=== PATIENT | male | born 1985 | race Two or more races ===

== ENCOUNTER 2020-04-17 12:01 | Outpatient (REF) | payer BC, SELFPAY | END 2020-04-17 12:02 | disposition home or self-care (01) | LOC: HO.LAB 12:01 | PROVIDERS: Visit Provider Internal Medicine | DX: Z20.828 Contact with and (suspected) exposure to other viral communicable diseases (principal) | CPT/HCPCS: 36415; 87635 ==

== ENCOUNTER 2020-08-07 12:44 | Outpatient (REF) | payer BC, SELFPAY | END 2020-08-07 12:45 | disposition home or self-care (01) | LOC: HO.LAB 12:44 | PROVIDERS: Visit Provider Internal Medicine | DX: Z20.822 Contact with and (suspected) exposure to COVID-19 (principal) | CPT/HCPCS: 36415; C9803; U0003 ==

== ENCOUNTER 2020-10-12 09:01 | Outpatient (REF) | payer BC, SELFPAY | END 2020-10-12 09:02 | disposition home or self-care (01) | LOC: HO.LAB 09:01 | PROVIDERS: Visit Provider Internal Medicine | DX: Z20.822 Contact with and (suspected) exposure to COVID-19 (principal) | CPT/HCPCS: 36415; C9803; U0003; U0005 ==

== ENCOUNTER 2020-11-02 11:01 | Outpatient (REF) | payer BC, SELFPAY ==
[2020-11-02 11:32] LABS: COVID-19 Test Negative (Negative); IDNOW Serial# 55D5AD1C
== END 2020-11-02 11:02 | disposition home or self-care (01) ==
LOC: HO.LAB 11:01
PROVIDERS: Visit Provider Internal Medicine
DX: Z20.822 Contact with and (suspected) exposure to COVID-19 (principal)
CPT/HCPCS: 36415; 87635; C9803

== ENCOUNTER 2021-01-21 15:21 | Outpatient (REF) | payer BC, SELFPAY | END 2021-01-21 15:22 | disposition home or self-care (01) | LOC: HO.LAB 15:21 | PROVIDERS: Visit Provider Internal Medicine | DX: Z20.822 Contact with and (suspected) exposure to COVID-19 (principal) | CPT/HCPCS: C9803; U0003; U0005 ==

== ENCOUNTER 2021-07-05 12:58 | Outpatient (REF) | payer BC, SELFPAY ==
[2021-07-05 14:07] LABS: COVID-19 Test Positive (Negative)
== END 2021-07-05 12:59 | disposition home or self-care (01) ==
LOC: HO.LAB 12:58
PROVIDERS: Visit Provider Internal Medicine
DX: Z20.822 Contact with and (suspected) exposure to COVID-19 (principal)
CPT/HCPCS: 36415; 87635; C9803

== ENCOUNTER 2023-09-12 09:08 | Outpatient (AMB) | payer BC, SELFPAY ==
--- NOTE | 2023-09-12 09:15 | AM.OFFWIN_ITS ---
Intake Vital Signs 09/12/23 09:16 Height 5 ft 6 in Weight 194 lb BMI 31.3 BP 140/78 H Blood Pressure Location Lt brachial Pulse 82 Pulse Source Pulse Oximeter Temp 98.5 F Temp Source Oral Pulse Oximetry (%) 97 Oxygen Delivery Method Room Air Intake Visit Reasons: Hand issue Intake Note: Patient is here with complaint of being sick last , and has an unsusal scent coming from both hands since he's been sick. He tested negative for Flu, Covid, and RSV. Patient Tobacco Use Status: Never used Tobacco Allergies No Known Allergies Allergy (Verified 09/12/23 10:37) Medication List - Last Reconciled 09/12/23 by GEORGINA Fuentes No Known Home Meds Do you need a note to return to daycare/school/sports/work: Yes HPI HPI Comments History of Present Illness Details Here today with concerns over an odd smell coming from bilat hands. Reports that he was sick with a URI. While these symptoms have improved he noticed a smell coming from his hands. Reports that he did go to the sauna and apply a new hand cream that was on sent it prior to the onset of his symptoms. To treat the smell which she can not really describe he did try some hand scrubs as well as applying additional lotions. He does not feel that the smell is coming from any other part of his body. Reports that the skin to his hands is oven drier tender than usual. Does tell me that he was treated at the urgent care for his URI symptoms previously. [facility] Medical History (Updated 07/14/21 @ 14:20 by Tung Valencia) Asthma Social History Housing: House Patient Tobacco Use Status: Never used Tobacco e-Cigarette/Vaping Use: Never Used Second Hand Smoke Exposure: Yes service: No Current occupational status: employed Current occupation: [employer] Current occupational exposures/hazards: Yes Review of Systems Const All systems reviewed & are unremarkable except as noted in HPI and below Physical Exam Vital Signs: Last Vital Signs Temp 98.5 F 09/12/23 09:16 Pulse 82 09/12/23 09:16 BP 140/78 H 09/12/23 09:16 Pulse Ox 97 09/12/23 09:16 Oxygen Delivery Method Room Air 09/12/23 09:16 BMI result Body Mass Index 31.3 Const Other: Awake alert oriented Skin to bilat hands palmar and dorsal surface is dry cracked And fungal appearing with out signs or symptoms of infection Assessment & Plan Assessment & Plan (1) Fungal dermatitis: Code(s): B36.9 - Superficial mycosis, unspecified Plan: Advised patient to mix the nystatin and betamethasone together and apply to hand s twice per day. Encouraged him to follow up with the office for a repeat visit to ensure that this is getting better in 1-2 weeks. Plan This note is constructed using voice recognition software. While every effort has been made to ensure accuracy in record retrieval specialist, still errors may have been included Sometimes, these errors may affect the content or meaning of the given sentence . Total time spent caring for the patient today was 30 minutes. This includes time spent before the visit reviewing the chart, time spent during the visit, and berta e spent after the visit on documentation Medications: New nystatin 1 appl topical BID 30 grams 1RF betamethasone dipropionate 0.05% 1 appl topical BID PRN 45 grams 1RF skin irritation Patient Instructions: wear gloves or cover hands at bedtime use a&d oint to moisturize during the day no other creams or treatments RTO in 2 weeks if not better. Coding Level of Care Code Est Pt Level 4 (23199) Diagnoses Fungal dermatitis B36.9
[2023-09-12 09:16] VITALS: BP 140/78; PULSE 82; TEMP 36.9; O2SAT 97; BMI 31.3
== END 2023-09-12 13:05 | disposition home or self-care (01) ==
PROVIDERS: PCP Family Medicine; Visit Provider Nurse Practitioner Family
DX: B36.9 Superficial mycosis, unspecified (principal)
CPT/HCPCS: 99214

== ENCOUNTER 2023-10-26 11:06 | Outpatient (AMB) | payer BC, SELFPAY ==
--- NOTE | 2023-10-26 11:09 | MHC.OFFWIV ---
Intake Vital Signs 10/26/23 11:10 Height 5 ft 6 in Weight 196 lb 4 oz BMI 31.7 BP 120/86 Blood Pressure Location Lt brachial Position Sitting Pulse 80 Pulse Source Pulse Oximeter Temp 98.4 F Temp Source Oral Pulse Oximetry (%) 98 Oxygen Delivery Method Room Air Intake Visit Reasons: EP migraines-scent coming from pores Intake Note: Pt presents to the office today for c/o migraines when he wakes up in the morning which started about a month ago. Pt states he also has a scent that comes from his pores. He states he was given a cream that helped for a little bit but now states it is still there. Patient Tobacco Use Status: Never used Tobacco Allergies No Known Allergies Allergy (Verified 10/26/23 11:11) HPI EP migraines-scent coming from pores HPI Details This is a 38 year old male patient who presents today with two complaints. He states he has an ongoing odor to his skin, particularly on his arms and hands. He cannot identify the distinct odor, but states it is unpleasant. When he showers this resolves for a short time. He was seen for this issue about two months ago and he was prescribed nystatin and betamethasone topical combination to apply to these areas. He states this helps for a short time, about 15 minutes, and then the smell recurs. He reports that other people cannot typically smell this odor, however a couple of times his has noticed the smell on his bedsheets in the morning. Patient also reports frequent headaches for the last month. He states he wakes up with a headache every morning, and this resolves within about an hour of being awake. He states within that hour he usually eats and drinks something. He does not take any medication for this. He reports headaches are always in the frontal aspect of his head, and feel like throbbing/pressure. He also has associated photophobia with these. He does not have any other associated symptoms. [facility] Medical History (Updated 10/26/23 @ 13:04 by PAPITO Mcnair) Fungal dermatitis Daily headache Asthma Social History Housing: House Patient Tobacco Use Status: Never used Tobacco e-Cigarette/Vaping Use: Never Used Second Hand Smoke Exposure: Yes service: No Current occupational status: employed Current occupation: [employer] Current occupational exposures/hazards: Yes Review of Systems Const All systems reviewed & are unremarkable except as noted in HPI and below Physical Exam Vital Signs: Last Vital Signs Temp 98.4 F 10/26/23 11:10 Pulse 80 10/26/23 11:10 BP 120/86 10/26/23 11:10 Pulse Ox 98 10/26/23 11:10 Oxygen Delivery Method Room Air 10/26/23 11:10 BMI result Body Mass Index 31.7 Const General: cooperative, healthy appearing and no acute distress Nutritional Appearance: average body habitus HEENT Head: Yes normal to inspection Ears: hearing grossly normal bilaterally General nose exam: Normal external nose present Eyes Pupils: Equal, round and reactive pupils present Direct Ophthalmoscopy: normal light reflex Neck Neck: Yes no lymphadenopathy Resp Effort & Inspection: normal respiratory effort Skin General skin exam: no rashes or lesions noted, elasticity normal and turgor normal Lesions: no lesions Rashes: no rashes Hair: normal Nails: normal Neuro General: no focal motor deficits Cranial nerves: Yes Equal, round and reactive pupils present, Yes Normal accommodation reflex present and Yes Other cranial nerve findings present Cognition (Neuro): normal cognition Extrem General: Yes no clubbing, cyanosis or edema Psych Appearance: grossly normal Mental Status: mental status grossly normal Speech and movement: Normal speech and movement present Results AMB Random Glucose (hemocue) AMB Random Glucose (hemocue) 91 mg/dL Last Edit by Isabel Nevarez MA on 10/26/23 11:35 Results Reviewed Results Reviewed: Laboratory Last Values Random Glu (Clinic) 91 mg/dL 10/26/23 11:34 Assessment & Plan Assessment & Plan (1) Daily headache: Code(s): R51.9 - Headache, unspecified Plan: Patient admittedly is not drinking much water. It is possible patient's morning headaches are related to dehydration, since when he starts to eat/drink, they resolve. Neuros are wnl. I checked fasting POC on patient today which was 91. We discussed increased hydration and he is going to see if this helps with the headaches at all. I have prescribed him a short course of Sumatriptan for him to try at the onset of symptoms. We discussed use and possible s/e of medication. He has a follow up with his PCP Dr. Toby in a couple of months and will discuss further if these are persistent. He can certainly return to the clinic as needed for any further concerns in the meantime. (2) Fungal dermatitis: Code(s): B36.9 - Superficial mycosis, unspecified Plan: I am unsure what this odor could represent. I did not identify any skin odor on exam today, however patient reported he had just showered. He has tried nystatin/betamethasone cream previously for a possible fungal derm, however he states this helps only briefly. His skin assessment is normal on exam. It is possible there is something in his diet causing this perceived malodor, however he could not identify anything in particular. We discussed referral to derm for an opinion there, which he would like. I will place referral to [facility] derm and he will also f/u with PCP as scheduled. All questions were answered and patient agrees to plan. Orders: Referrals Dermatology Referral B36.9 - Superficial mycosis, unspecified Medications: New sumatriptan succinate orally 2 times a day PRN; take one tab at the onset of the headache. It it persists, take a second tab at least 2 hours later. 20 tabs 0RF migraine headache R51.9 - Headache, unspecified Coding Level of Care Code Est Pt Level 4 (99851) Diagnoses Daily headache R51.9 Fungal dermatitis B36.9
[2023-10-26 11:10] VITALS: BP 120/86; PULSE 80; TEMP 36.9; O2SAT 98; BMI 31.7
== END 2023-10-26 12:41 | disposition home or self-care (01) ==
PROVIDERS: PCP Family Medicine; Visit Provider Nurse Practitioner Family
DX: R51.9 Headache, unspecified (principal); B36.9 Superficial mycosis, unspecified
CPT/HCPCS: 99214

== ENCOUNTER 2023-10-27 15:22 | Outpatient (AMB) | payer BC, SELFPAY ==
[2023-10-27 15:23] VITALS: BP 132/80; PULSE 82; RESP 13; TEMP 36.8; O2SAT 98; BMI 32.1
--- NOTE | 2023-10-27 15:23 | MHC.PC.OV ---
Vital Signs 10/27/23 15:23 Height 5 ft 6 in Weight 199 lb BMI 32.1 BP 132/80 Blood Pressure Location Rt brachial Position Sitting Respiration 13 Pulse 82 Pulse Source Pulse Oximeter Temp 98.3 F Temp Source Temporal Artery Scan Pulse Oximetry (%) 98 Oxygen Delivery Method Room Air Intake Visit Reasons: lightheadedness Internist Medical Doctor Md Required: No Accompanied by: Self / Same As Patient Allergies No Known Allergies Allergy (Verified 10/27/23 15:35) Medication List - Last Reconciled 10/27/23 by Declan Buenrostro CNP betamethasone dipropionate 0.05% 1 appl topical BID PRN nystatin 1 appl topical BID sumatriptan succinate orally 2 times a day PRN; take one tab at the onset of the headache. It it persists, take a second tab at least 2 hours later. Tobacco use date assessed: 10/27/23 Dental Screening Dental Screen Date: 10/27/23 Did you have a dental visit in the last 12 months?: Yes Did you have a dental problem in the last 6 months where you did not have access to dental care?: No Was dental information given to patient?: Patient has dentist HPI HPI Comments History of Present Illness Details 38-year-old male presents with complaints of complaints of persistent frontal headaches for over a week. He reports dizziness and blurry vision for 5-10 minutes this morning, which made him decided to no go to work today. He was evaluated at the walk-in clinic for similar clinic yesterday and was prescribed sumatriptan which he started taking this morning with significant headache relief. He admits to not drinking adequate fluids. He admits to mild photophobia. Denies photophobia. No nausea or vomiting. Current headache is mild. [facility] Medical History Fungal dermatitis Daily headache Asthma Surgical History (Updated 10/27/23 @ 15:30 by KAYY Bazan) No pertinent past surgical history Social History Housing: House Patient Tobacco Use Status: Never used Tobacco e-Cigarette/Vaping Use: Never Used Second Hand Smoke Exposure: Yes service: No Current occupational status: employed Current occupation: [employer] Current occupational exposures/hazards: Yes Cognitive needs: No Hearing needs: No Vision needs: No Questionnaire Thrive Questionnaire Date Thrive assessed: 07/14/21 MARTINA-7 AMB Questionnaire MARTINA-7 Date MARTINA - 7 assessed: 07/14/21 Source: Developed by Drs. Edvin Spring, Susan Will, Rai Jean and colleagues, with an educational fawn from [email or web address]. Review of Systems Const Details: Const Denies chills, Denies fatigue, Denies fever(s), Reports headache(s) and Denies weakness ENT Reports as per HPI Card Denies chest pain, Denies lightheadedness, Denies dyspnea and Denies other (Palpitations) Resp Denies cough, Denies dyspnea, Denies wheezing and Denies other ( shortness of breath) GI Denies abdominal pain, Denies melena, Denies hematochezia, Denies change in bowel habits, Denies dyspepsia and Denies nausea Denies hematuria and Denies dysuria Musc Denies abnormal gait, Denies myalgias, Denies arthralgias, Denies numbness and Denies tingling Skin/Breast Denies rash, Denies unusual bruising and Denies wounds Neuro Denies abnormal gait, Denies dizziness, Denies headache(s), Denies memory loss, Denies numbness, Denies Sensory deficit (Neuro), Denies tingling and Denies weakness Psych Denies anxiety, Denies depression, Denies memory loss Endo Denies cold intolerance, Denies fatigue, Denies heat intolerance, Denies polydipsia and Denies polyuria Aller/Immun Denies wheezing Physical exam (Primary Care) Vital Signs: Last Vital Signs Temp 98.3 F 10/27/23 15:23 Pulse 82 10/27/23 15:23 Resp 13 10/27/23 15:23 BP 132/80 10/27/23 15:23 Pulse Ox 98 10/27/23 15:23 Oxygen Delivery Method Room Air 10/27/23 15:23 BMI result Body Mass Index 32.1 Tobacco/Smoking Status: Tobacco use Status Tobacco use date assessed 10/27/23 10/27/23 15:31 Patient Tobacco Use Status Never used Tobacco 10/27/23 15:31 e-Cigarette/Vaping Use Never Used 10/27/23 15:31 Thrive Assessment: Date of Thrive Assessment Date Thrive assessed 07/14/21 10/27/23 15:31 Const Other: General: no acute distress and well developed Nutritional Appearance: well nourished Orientation/consciousness: patient oriented x3 [facility] Head is normocephalic Bilateral ear canal and TM are normal Nasal turbinates and oropharynx are pink and moist Sinuses are nontender with palpation No auricular or cervical lymphadenopathy Eyes General: appearance normal, both eyes and all related structures Pupils: Equal, round and reactive pupils present EOM: EOMs intact bilaterally Resp Effort & Inspection: normal respiratory effort Auscultation: clear to auscultation bilaterally Cardio Rate: regular rate Rhythm: regular rhythm Heart sounds: S1 normal heart sound present, S2 normal heart sound present, no gallops, no murmurs and no rubs GI Palpation (GI): No Abdominal aortic bruit present, Soft to palpation, nontender, No hepatosplenomegaly present and No Rebound tenderness present Auscultation: normal bowel sounds General: Yes no CVA tenderness Back/Spine/Pelvis Back: no CVA tenderness Cervical Spine: cervical ROM normal and No Cervical spine tenderness Thoracic/Lumbar Spine: thoraco-lumbar ROM normal, No pain with thoraco-lumbar ROM, No thoracic spinal tenderness and No lumbar spinal tenderness Extrem General: Yes normal to inspection, No edema and No calf tenderness Skin General: warm and dry. Normal skin color. Normal skin turgor Neuro General: patient oriented x3, gait normal and no focal neuro deficit Cranial nerves: Yes Equal, round and reactive pupils present Cognition (Neuro): normal cognition Gait exam (Neuro): Normal gait present Sensory Exam: No Sensory deficit (Neuro) Psych Appearance: grossly normal Affect: normal affect Attitude: cooperative Thought process: Normal thought process present Assessment and Plan Assessment & Plan (1) Daily headache: Code(s): R51.9 - Headache, unspecified Plan: Persistent frontal headache for over a week. Responding well to sumatriptan. Current headache is mild Continue to take sumatriptan as prescribed Adequate hydration encouraged Labs ordered. Advised to fast for 10-12 hours, may drink water only, and get blood work done. Will review results and make changes as needed Work note given Follow-up with PCP as planned or return sooner with worsening or new symptoms Verbalized understanding and agreed with treatment plan Orders: Orders Complete Blood Count Auto Diff Today R51.9 - Headache, unspecified Comprehensive [place]. Panel Fast Today R51.9 - Headache, unspecified TSH reflex Free T4 Today R51.9 - Headache, unspecified Lipid Panel Today R51.9 - Headache, unspecified Coding Level of Care Code Est Pt Level 3 (13967) Diagnoses Daily headache R51.9
== END 2023-10-27 15:49 | disposition home or self-care (01) ==
LOC: HO.HMGFM 15:22
PROVIDERS: PCP Family Medicine
DX: R51.9 Headache, unspecified (principal)
CPT/HCPCS: 99213

== ENCOUNTER 2024-04-10 12:15 | Outpatient (REF) | payer BC, SELFPAY ==
[2024-04-10 15:02] LABS: MANUAL DIFF FLAG NO
[2024-04-10 15:07] LABS: Eosinophils Percent Auto 0.5 % (0-4); Hematocrit 38.3 % (42.0-52.0); Hemoglobin 12.9 g/dl (14.0-18.0); Imm Gran Abs Auto 0.01 X10*3/uL (0.00-0.03); Imm Gran Pct Auto 0.3 % (0.0-0.4); Lymphocytes Absolute Auto 1.6 X10*3/uL (1.2-4.9); Lymphocytes Percent Auto 40.8 % (20-40); Mean Corpuscular HGB Conc 33.7 g/dl (31.0-36.0); Mean Corpuscular Hemoglobin 29.3 pg (27.0-33.0); Mean Corpuscular Volume 86.8 fL (80.0-98.0); Mean Platelet Volume 9.2 fL (9.4-12.4); Monocytes Absolute Auto 0.3 X10*3/uL (0.1-1.2); Monocytes Percent Auto 7.2 % (2-11); Neutrophils Percent Auto 50.2 % (45-73); Platelet Count 257 X10*3/uL (160-400); Red Blood Count 4.41 X10*6/uL (4.60-5.80); Red Cell Distribution Width 12.7 % (11.0-16.0); White Blood Count 3.9 X10*3/uL (4.8-10.8)
[2024-04-10 16:30] LABS: Alanine Aminotransferase 24 U/L (0-40); Albumin Level 4.6 g/dL (3.5-5.0); Alkaline Phosphatase 81 U/L (39-117); Anion Gap 14 (12-20); Aspartate Amino Transferase 25 U/L (5-37); Bilirubin Total 0.7 mg/dL (0.0-1.0); Blood Urea Nitrogen 15 mg/dL (9-16); Calcium 9.7 mg/dL (8.4-10.2); Carbon Dioxide 28 mmol/L (22-29); Chloride 101 mmol/L (96-108); Cholesterol 182 mg/dL (<200); Estimated Glomerular Filt Rate > 60; Glucose Fasting 83 mg/dL (60-99); HDL Cholesterol 43 mg/dL (>40); LDL Cholesterol Calculated 117 mg/dL (<100); Potassium 4.2 mmol/L (3.3-5.1); Sodium 139 mmol/L (135-145); Total Protein 8.4 g/dL (6.5-8.0); Triglycerides 114 mg/dL (<150)
[2024-04-10 20:07] LABS: TSH reflex Free T4 0.87 uIU/mL (0.32-4.0)
== END 2024-04-10 12:16 | disposition home or self-care (01) ==
LOC: HO.WFDLDS 12:15
PROVIDERS: Visit Provider Nurse Practitioner Family
DX: R51.9 Headache, unspecified (principal)
CPT/HCPCS: 36415; 80053; 80061; 84443; 85025

== ENCOUNTER 2024-05-29 16:12 | Outpatient (AMB) | payer BC, SELFPAY ==
--- NOTE | 2024-05-29 16:15 | A.OFFPC_ITS ---
Vital Signs 05/29/24 16:21 Height 5 ft 6 in Weight 190 lb 4 oz BMI 30.7 BP 126/76 Blood Pressure Location Rt brachial Position Sitting Respiration 14 Pulse 83 Pulse Source Pulse Oximeter Temp 98.0 F Temp Source Oral Pulse Oximetry (%) 98 Oxygen Delivery Method Room Air Intake Visit Reasons: Blood Work f/u Intake Note: f/u labs from 04/10/24 Allergies No Known Allergies Allergy (Verified 05/29/24 16:20) Tobacco use date assessed: 10/27/23 Dental Screening Dental Screen Date: 10/27/23 HPI Blood Work f/u HPI Details 38 y/o male presents to f/u labs. Labs drawn 04/10/24. Reviewed labs with pt. Mild anemia. Denies any hx of anemia. Triglycerides 114. TC 182. LDL 117. HDL 43. TSH 0.87. Rest of his labs are fine. Total protein mildly high at 8.4 g/dL. Had seen MI in October for persistent headaches. He had been given sumitriptan for migraine headaches. He notes he needs to work on a diet and needs to get back to the gym. [facility] Medical History (Updated 05/29/24 @ 16:42 by Tung Valencia) Fungal dermatitis Daily headache Asthma Surgical History (Updated 10/27/23 @ 15:30 by KAYY Bazan) No pertinent past surgical history Social History Housing: House Patient Tobacco Use Status: Never used Tobacco e-Cigarette/Vaping Use: Never Used Second Hand Smoke Exposure: Yes service: No Current occupational status: employed Current occupation: [employer] Current occupational exposures/hazards: Yes Cognitive needs: No Hearing needs: No Vision needs: No Questionnaire PHQ-9 Over the last 2 weeks, how often have you been bothered by any of the following problems? 1. Little interest or pleasure in doing things: not at all 2. Feeling down, depressed, or hopeless: not at all 3. Trouble falling or staying asleep, or sleeping too much: not at all 4. Feeling tired or having little energy: not at all 5. Poor appetite or overeating: not at all 6. Feeling bad about yourself - or that you are a failure or have let yourself or your family down: not at all 7. Trouble concentrating on things, such as reading the newspaper or watching television: not at all 8. Moving or speaking so slowly that other people could have noticed. Or the opposite - being so fidgety or restless that you have been moving around a lot more than usual: not at all 9. Thoughts that you would be better off or of hurting yourself in some way : not at all Total score: 0 Source: Developed by Drs. Edvin Spring, Susan Will, Rai Jean and colleagues, with an educational fawn from [employer]. Thrive Questionnaire Date Thrive assessed: 07/14/21 I am a: Patient What is your living situation today?: I have a steady place to live Within the past 12 months, did the food you bought not last and you didn't have the money to get more?: Never true Within the past 12 months, did you worry whether your food would run out before you got money to buy more?: Never true Do you have trouble paying for medicines?: No Do you have trouble getting transportation to medical appointments?: No Do you have trouble paying your heating and electricity bill?: No Do you have trouble taking care of your child, family member or friend?: No Do you have trouble with day-to-day activities such as bathing, preparing meals, shopping, managing finances, etc.?: No Are you currently unemployed and looking for a job?: No Are you interested in more education?: No Please select the resources that you would like help with: None Currently or been in a relationship where the following occur: No concerns reported THRIVE Score: 0 AUDIT C Alcohol Use Questionnaire (AUDIT-C) 1. How often do you have a drink containing alcohol?: 2-4 times a month 2. How many drinks containing alcohol do you have on a typical day when you are drinking?: 1 or 2 3. How often do you have six or more drinks on one occasion?: Never Total Score: 2 MARTINA-7 AMB Questionnaire MARTINA-7 Date MARTINA - 7 assessed: 07/14/21 Feeling nervous, anxious, or on edge: 0 = Not at all Not being able to stop or control worryin = Not at all Worrying too much about different things: 0 = Not at all Trouble relaxin = Several days Being so restless that it is hard to sit still: 0 = Not at all Becoming easily annoyed or irritable: 0 = Not at all Feeling afraid as if something awful might happen: 0 = Not at all Total MARTINA-7 score (0-4 normal; 5-9 mild; 10-14 moderate; 15-21 severe): 1 Source: Developed by Drs. Edvin Spring, Susan Will, Rai Jean and colleagues, with an educational fawn from [employer]. Review of Systems Const Denies chills, Denies fatigue, Denies fever(s), Denies headache(s) and Denies weakness ENT Denies dizziness and Denies headache(s) Card Denies chest pain, Denies lightheadedness, Denies dyspnea and Denies other (Palpitations) Resp Denies cough, Denies dyspnea, Denies wheezing and Denies other ( shortness of breath) Musc Denies numbness and Denies tingling Neuro Denies dizziness, Denies headache(s), Denies numbness, Denies tingling, Denies paresthesias and Denies weakness Psych Denies anxiety and Denies depression Endo Denies fatigue Aller/Immun Denies wheezing Physical exam (Primary Care) Vital Signs: Last Vital Signs Temp 98.0 F 05/29/24 16:21 Pulse 83 05/29/24 16:21 Resp 14 05/29/24 16:21 BP 126/76 05/29/24 16:21 Pulse Ox 98 05/29/24 16:21 Oxygen Delivery Method Room Air 05/29/24 16:21 BMI result Body Mass Index 30.7 Tobacco/Smoking Status: Tobacco use Status Tobacco use date assessed 10/27/23 05/29/24 16:15 Patient Tobacco Use Status Never used Tobacco 05/29/24 16:15 e-Cigarette/Vaping Use Never Used 05/29/24 16:15 PHQ-9: PHQ-9 Score PHQ-9: Total score 0 05/29/24 16:18 Thrive Assessment: Date of Thrive Assessment Date Thrive assessed 07/14/21 05/29/24 16:15 Currently or been in a relationship where the following occur: No concerns reported Const General: no acute distress and well developed Nutritional Appearance: well nourished Orientation/consciousness: patient oriented x3 HENMT Head: Yes normocephalic and Yes atraumatic Eyes General: appearance normal, both eyes and all related structures Pupils: Equal, round and reactive pupils present EOM: EOMs intact bilaterally Resp Effort & Inspection: normal respiratory effort Auscultation: clear to auscultation bilaterally Cardio Rate: regular rate Rhythm: regular rhythm Heart sounds: S1 normal heart sound present, S2 normal heart sound present, no gallops, no murmurs and no rubs Neuro General: patient oriented x3 and gait normal Cranial nerves: Yes Equal, round and reactive pupils present Psych Affect: normal affect Coding Level of Care Code Est Pt Level 4 (23753) Diagnoses Mild anemia D64.9 Elevated LDL cholesterol level E78.00 Screening for prostate cancer Z12.5 Daily headache R51.9 Elevated serum protein level R77.9 Assessment & Plan Assessment & Plan (1) Mild anemia: Code(s): D64.9 - Anemia, unspecified Category: Medical Plan: Mild?normocytic?anemia?as?well?as?very?slight?le ukopenia?and?elevated?protein?level Will?recheck?CBC?as?well?as?SPEP,?iron?levels?and?retic?count. ?And?B12?level (2) Elevated LDL cholesterol level: Code(s): E78.00 - Pure hypercholesterolemia, unspecified Category: Medical Plan: Mildly?elevated?LDL?cholesterol Encouraged?a?diet?lower?in?saturated?fats?and?cholesterol Encouraged?exercise?and?weight?loss (3) Screening for prostate cancer: Code(s): Z12.5 - Encounter for screening for malignant neoplasm of prostate Category: Medical Plan: Patient?will?be?due?for?PSA?level?at?next?visit?in?late?August Ordered (4) Daily headache: Code(s): R51.9 - Headache, unspecified Category: Medical Plan: This?has?resolved He?will?maintain?good?hydration If?migraine?headaches?return?he?can?use sumatriptan If?he?is?getting?frequent?headaches?he?will?let?me?know?and?we?will?investigate? further?as?well?as?discuss?medications?for?migraine?prevention (5) Elevated serum protein level: Code(s): R77.9 - Abnormality of plasma protein, unspecified Category: Medical Plan: Checking?SPEP?as?mentioned?above Patient?notes?that?he?sometimes?uses?a?protein?supplement Orders: Orders Vitamin B12 and Folate Today D64.9 - Anemia, unspecified, E53.8 - Deficiency of other specified B group vitamins Protein Electrophoresis, Serum Today D64.9 - Anemia, unspecified Basic Metabolic Panel Today D64.9 - Anemia, unspecified, Z00.00 - Encounter for general adult medical examination without abnormal findings Complete Blood Count Auto Diff Today D64.9 - Anemia, unspecified, Z00.00 - Encounter for general adult medical examination without abnormal findings IRON PROFILE Today D64.9 - Anemia, unspecified Reticulocyte Count Today D64.9 - Anemia, unspecified Prostate Specific Antigen Scr Today Z12.5 - Encounter for screening for malignant neoplasm of prostate
[2024-05-29 16:21] VITALS: BP 126/76; PULSE 83; RESP 14; TEMP 36.7; O2SAT 98; BMI 30.7
== END 2024-05-29 16:41 | disposition home or self-care (01) ==
PROVIDERS: PCP Family Medicine; Visit Provider Family Medicine
DX: D64.9 Anemia, unspecified (principal); E78.00 Pure hypercholesterolemia, unspecified; Z12.5 Encounter for screening for malignant neoplasm of prostate; R51.9 Headache, unspecified; R77.9 Abnormality of plasma protein, unspecified

== ENCOUNTER 2024-06-06 15:25 | Outpatient (AMB) | payer BC, SELFPAY ==
--- NOTE | 2024-06-06 15:49 | MHC.PC.OV ---
Vital Signs 06/06/24 15:52 Height 5 ft 6 in Weight 192 lb 2 oz BMI 31.0 BP 120/66 Blood Pressure Location Rt brachial Position Sitting Respiration 16 Pulse 88 Pulse Source Pulse Oximeter Temp 98.4 F Temp Source Oral Pulse Oximetry (%) 98 Oxygen Delivery Method Room Air Intake Visit Reasons: annual physical Intake Note: annual Allergies No Known Allergies Allergy (Verified 06/06/24 15:58) Medication List - Last Reconciled 06/06/24 by Declan Buenrostro CNP No Known Home Meds Tobacco use date assessed: 10/27/23 Dental Screening Dental Screen Date: 06/06/24 Did you have a dental visit in the last 12 months?: Yes Did you have a dental problem in the last 6 months where you did not have access to dental care?: No Was dental information given to patient?: Patient has dentist HPI HPI Comments History of Present Illness Details The patient is a 38-year-old male presenting for a physical examination. His past medical history is notable for mild anemia, which was initially evaluated by his primary care provider. He is scheduled for a follow-up appointment in August 2024 for a review of labs and management of the anemia. Additionally, the patient has a history of elevated LDL levels. He has not reported any specific symptoms related to these conditions. Social History - Denies tobacco use, including cigarettes and vaping. - Alcohol consumption is limited to a couple of glasses of wine, mainly on weekends, approximately two to four times a month. - No recreational drug use reported. - Reports attempts to maintain a healthy diet, although acknowledges occasional lapses. - Engages in regular exercise. - Reports average sleep without major disturbances. Health Maintenance - He has never had an eye exam. - He saw his dentist recently and has plan for tooth extraction. - Cannot recall the exact date of last tetanus vaccine but confirms it's within ten years. - He is up-to-date on the flu vaccine. [facility] Medical History (Updated 06/06/24 @ 16:19 by Declan Buenrostro CNP) Fungal dermatitis Daily headache Asthma Surgical History No pertinent past surgical history Social History Housing: House Patient Tobacco Use Status: Never used Tobacco e-Cigarette/Vaping Use: Never Used Second Hand Smoke Exposure: Yes service: No Current occupational status: employed Current occupation: [employer] Current occupational exposures/hazards: Yes Cognitive needs: No Hearing needs: No Vision needs: No Questionnaire PHQ-9 Over the last 2 weeks, how often have you been bothered by any of the following problems? 1. Little interest or pleasure in doing things: not at all 2. Feeling down, depressed, or hopeless: not at all 3. Trouble falling or staying asleep, or sleeping too much: not at all 4. Feeling tired or having little energy: not at all 5. Poor appetite or overeating: not at all 6. Feeling bad about yourself - or that you are a failure or have let yourself or your family down: not at all 7. Trouble concentrating on things, such as reading the newspaper or watching television: not at all 8. Moving or speaking so slowly that other people could have noticed. Or the opposite - being so fidgety or restless that you have been moving around a lot more than usual: not at all 9. Thoughts that you would be better off or of hurting yourself in some way: not at all Total score: 0 Depression Screening Interpretation: Negative Depression Screening Done: Yes 99097 - PHQ-9 Billing: Yes Source: Developed by Drs. Edvin Spring, Susan Will, Rai Jean and colleagues, with an educational fawn from [employer]. Thrive Questionnaire Date Thrive assessed: 06/06/24 I am a: Patient What is your living situation today?: I have a steady place to live Within the past 12 months, did the food you bought not last and you didn't have the money to get more?: Never true Within the past 12 months, did you worry whether your food would run out before you got money to buy more?: Never true Do you have trouble paying for medicines?: No Do you have trouble getting transportation to medical appointments?: No Do you have trouble paying your heating and electricity bill?: No Do you have trouble taking care of your child, family member or friend?: No Do you have trouble with day-to-day activities such as bathing, preparing meals, shopping, managing finances, etc.?: No Are you currently unemployed and looking for a job?: No Are you interested in more education?: No Please select the resources that you would like help with: None Currently or been in a relationship where the following occur: No concerns reported THRIVE Score: 0 AUDIT C Alcohol Use Questionnaire (AUDIT-C) 1. How often do you have a drink containing alcohol?: 2-4 times a month 2. How many drinks containing alcohol do you have on a typical day when you are drinking?: 3 or 4 3. How often do you have six or more drinks on one occasion?: Less than monthly Total Score: 4 Score Reviewed/Action Taken: Yes MARTINA-7 AMB Questionnaire MARTINA-7 Date MARTINA - 7 assessed: 06/06/24 Feeling nervous, anxious, or on edge: 0 = Not at all Not being able to stop or control worryin = Not at all Worrying too much about different things: 0 = Not at all Trouble relaxin = Not at all Being so restless that it is hard to sit still: 0 = Not at all Becoming easily annoyed or irritable: 0 = Not at all Feeling afraid as if something awful might happen: 0 = Not at all Total MARTINA-7 score (0-4 normal; 5-9 mild; 10-14 moderate; 15-21 severe): 0 Source: Developed by Drs. Edvin Spring, Susan Will, Rai Jean and colleagues, with an educational fawn from [employer]. MARTINA-7 Assessment Billing MARTINA-7 Assessment Tool: MARTINA-7 Assessment 23926 Review of Systems Const Details: Denies chills, Denies fatigue, Denies fever(s), Denies headache(s) and Denies weakness HEENT Denies change in vision, Denies dizziness, Denies headache(s), Denies hearing loss, Denies nasal congestion, Denies sinus pain, Denies sinus pressure and Denies sore throat Card Denies chest pain, Denies lightheadedness, Denies dyspnea and Denies other (palpitations) Resp Denies cough, Denies dyspnea and Denies wheezing GI Denies abdominal pain, Denies melena, Denies hematochezia, Denies change in bowel habits, Denies dyspepsia and Denies nausea Denies hematuria and Denies dysuria Musc Denies abnormal gait, Denies myalgias, Denies arthralgias, Denies numbness and Denies tingling Skin/Breast Denies rash, Denies unusual bruising and Denies wounds Neuro Denies abnormal gait, Denies dizziness, Denies headache(s), Denies memory loss, Denies numbness, Denies Sensory deficit (Neuro), Denies tingling and Denies weakness Psych Denies anxiety, Denies depression and Denies memory loss Endo Denies cold intolerance, Denies fatigue, Denies heat intolerance, Denies polydipsia and Denies polyuria Brendan/Lymph Denies easy bleeding and Denies easy bruising Aller/Immun Denies wheezing Physical exam (Primary Care) Vital Signs: Last Vital Signs Temp 98.4 F 06/06/24 15:52 Pulse 88 06/06/24 15:52 Resp 16 06/06/24 15:52 BP 120/66 06/06/24 15:52 Pulse Ox 98 06/06/24 15:52 Oxygen Delivery Method Room Air 06/06/24 15:52 BMI result Body Mass Index 31.0 Tobacco/Smoking Status: Tobacco use Status Tobacco use date assessed 10/27/23 06/06/24 15:55 Patient Tobacco Use Status Never used Tobacco 06/06/24 15:55 e-Cigarette/Vaping Use Never Used 06/06/24 15:55 PHQ-9: PHQ-9 Score PHQ-9: Total score 0 06/06/24 15:55 Depression Screening Interpretation: Negative Thrive Assessment: Date of Thrive Assessment Date Thrive assessed 06/06/24 06/06/24 15:55 Currently or been in a relationship where the following occur: No concerns reported Const Other: General: no acute distress, well developed, alert and awake Nutritional Appearance: well nourished Orientation/consciousness: patient oriented x3 HENMT Head: Yes normocephalic and Yes atraumatic Ears: hearing grossly normal bilaterally and TM's normal bilaterally General nose exam: Normal external nose present and Normal nares present Mouth: Normal oral and palatal mucosa present and moist mucous membranes Teeth and gingiva: dentition normal Throat: Yes oropharynx normal Eyes Pupils: Equal, round and reactive pupils present and Pupil accommodation reflex normal EOM: EOMs intact bilaterally Neck Neck: Yes normal visual inspection, Yes no lymphadenopathy and Yes trachea midline Thyroid: Thyroid normal Carotids: no bruits Lymphatic: no lymphadenopathy noted Chest Chest palpation & inspection: normal inspection of the chest Resp Effort & Inspection: normal respiratory effort Auscultation: clear to auscultation bilaterally Cardio Rate: regular rate Rhythm: regular rhythm Heart sounds: S1 normal heart sound present, S2 normal heart sound present, no gallops, no murmurs and no rubs Bruits: no abdominal aortic bruits and no carotid bruits GI Palpation (GI): No Abdominal aortic bruit present, Soft to palpation, nontender, No hepatosplenomegaly present and No Rebound tenderness present Auscultation: normal bowel sounds General: Yes no CVA tenderness Back/Spine/Pelvis Back: no CVA tenderness Cervical Spine: cervical ROM normal and No Cervical spine tenderness Thoracic/Lumbar Spine: thoraco-lumbar ROM normal, No pain with thoraco-lumbar ROM, No thoracic spinal tenderness and No lumbar spinal tenderness Skin General: warm and dry. Normal skin color. Normal skin turgor Lesions: no lesions Rashes: no rashes Trauma: no lacerations or abrasions Wounds: no wounds Nails: normal Neuro General: patient oriented x3, gait normal and CN's II-XI intact bilaterally Cranial nerves: Yes Equal, round and reactive pupils present Cognition (Neuro): normal cognition Gait exam (Neuro): Normal gait present Motor exam (neuro): 5/5 motor strength present throughout Sensory Exam: No Sensory deficit (Neuro) Deep tendon reflexes (DTR's): Right patellar reflex intensity grade: 2+ and Left patellar reflex intensity grade: 2+ Extrem General: Yes normal to inspection, No edema and No calf tenderness Psych Appearance: grossly normal Affect: normal affect Attitude: cooperative Thought process: Normal thought process present Coding Level of Care Code Est Pt Prev Care 18-39y(88068) Diagnoses Adult general medical exam Z00.00 Eye exam, routine Z01.00 Additional Codes MARTINA-7 Assessment Billing - MARTINA-7 Assessment Tool: MARTINA-7 Assessment 73802 ([id number]) PHQ-9 - 48557 - PHQ-9 Billing: Yes ([id number]) Assessment & Plan Assessment & Plan (1) Adult general medical exam: Code(s): Z00.00 - Encounter for general adult medical examination without abnormal findings Category: Medical Plan: Normal physical exam. No significant functional limitation noted. (2) Eye exam, routine: Code(s): Z01.00 - Encounter for examination of eyes and vision without abnormal findings Category: Medical Plan: Referred to ophthalmology for routine eye care Plan During the visit, we discussed the importance of follow-up appointments with the primary care provider to address mild anemia and review laboratory results. The need for monitoring and potential management of elevated LDL levels was also emphasized. We discussed potential lifestyle modifications, including diet and exercise, that may positively impact both conditions. The patient acknowledged and agreed to continue follow-up and monitoring. Orders: Referrals Ophthalmology Referral Z01.00 - Encounter for examination of eyes and vision without abnormal findings Patient Instructions: - Continue attending scheduled appointments with primary care provider for monitoring of anemia and elevated LDL levels. - Maintain a balanced diet and regular exercise routine. - Abstain from tobacco products and limit alcohol consumption as discussed. - Consider scheduling an eye exam given the timeframe since the last assessment. - Follow up with an eye doctor as referred, and anticipate the call for scheduling. Patient was informed and verbally consented to the use of an ambient scribe for clinic note documentation during this visit.
[2024-06-06 15:52] VITALS: BP 120/66; PULSE 88; RESP 16; TEMP 36.9; O2SAT 98; BMI 31.0
== END 2024-06-06 16:13 | disposition home or self-care (01) ==
PROVIDERS: PCP Family Medicine; Visit Provider Nurse Practitioner Family
DX: Z00.00 Encounter for general adult medical examination without abnormal findings (principal)

== ENCOUNTER → 2024-06-06 15:25 | Outpatient (BNVA) | payer BC, SELFPAY | PROVIDERS: PCP Family Medicine; Visit Provider Nurse Practitioner Family | DX: Z00.00 Encounter for general adult medical examination without abnormal findings (principal) | CPT/HCPCS: 96127 ==

== ENCOUNTER 2024-08-31 10:16 | Outpatient (REF) | payer BC, SELFPAY ==
[2024-08-31 10:31] LABS: MANUAL DIFF FLAG NO
[2024-08-31 10:42] LABS: Basophils Percent Auto 0.4 % (0-2); Eosinophils Absolute Auto 0.1 X10*3/uL (0.0-0.4); Eosinophils Percent Auto 1.6 % (0-4); Hematocrit 38.9 % (42.0-52.0); Hemoglobin 13.3 g/dl (14.0-18.0); Imm Gran Abs Auto 0.02 X10*3/uL (0.00-0.03); Imm Gran Pct Auto 0.4 % (0.0-0.4); Immature Retic Fraction 10.5 % (2.3-13.4); Lymphocytes Absolute Auto 2.1 X10*3/uL (1.2-4.9); Lymphocytes Percent Auto 45.7 % (20-40); Mean Corpuscular HGB Conc 34.2 g/dl (31.0-36.0); Mean Corpuscular Hemoglobin 30.2 pg (27.0-33.0); Mean Corpuscular Volume 88.4 fL (80.0-98.0); Mean Platelet Volume 8.7 fL (9.4-12.4); Monocytes Absolute Auto 0.5 X10*3/uL (0.1-1.2); Neutrophils Absolute Auto 1.9 x10*3/uL (2.0-8.3); Neutrophils Percent Auto 41.9 % (45-73); Platelet Count 259 X10*3/uL (160-400); Red Cell Distribution Width 12.8 % (11.0-16.0); Retic HGB Equivalent 33.5 pg (30.0-35.0); Reticulocyte Percent 1.9 % (0.5-1.8); Reticulocytes Absolute 0.084 X10*6/uL (0.026-0.095); White Blood Count 4.5 X10*3/uL (4.8-10.8)
[2024-08-31 11:05] LABS: Anion Gap 12 (12-20); Blood Urea Nitrogen 20 mg/dL (9-16); Calcium 9.7 mg/dL (8.4-10.2); Carbon Dioxide 27 mmol/L (22-29); Chloride 107 mmol/L (96-108); Estimated Glomerular Filt Rate > 60; Glucose Random 87 mg/dL (60-115); Iron 81 mcg/dL (45-160); Percent Iron Saturation 25 % (15-50); Potassium 4.7 mmol/L (3.3-5.1); Sodium 141 mmol/L (135-145); Total Iron Binding Capacity 319 mcg/dL (228-428); Unsaturated Iron Binding 238 ug/dL
[2024-08-31 11:40] LABS: Folate 10.1 ng/mL (> or = 4.0); Prostate Specific Antigen Scr 2.59 ng/mL (<0.05-4.0); Vitamin B12 797 pg/mL (200-900)
[2024-09-02 22:49] LABS: Prot Elec - Albumin 4.6 g/dL (3.8-4.8); Prot Elec - Alpha1 0.2 g/dL (0.2-0.3); Prot Elec - Alpha2 0.5 g/dL (0.5-0.9); Prot Elec - Beta 1 0.5 g/dL (0.4-0.6); Prot Elec - Beta 2 0.5 g/dL (0.2-0.5); Prot Elec - Gamma 1.8 g/dL (0.8-1.7); Prot Elec - Total Protein 8.1 g/dL (6.1-8.1)
== END 2024-08-31 10:17 | disposition home or self-care (01) ==
LOC: HO.LAB 10:16
PROVIDERS: PCP Family Medicine; Visit Provider Family Medicine
DX: Z00.00 Encounter for general adult medical examination without abnormal findings (principal); Z12.5 Encounter for screening for malignant neoplasm of prostate; D64.9 Anemia, unspecified; E53.8 Deficiency of other specified B group vitamins
CPT/HCPCS: 36415; 80048; 82607; 82746; 83540; 84153; 84165; 85025; 85045

== ENCOUNTER 2024-09-02 15:40 | Outpatient (AMB) | payer BC, SELFPAY ==
--- NOTE | 2024-09-02 15:57 | MHC.PC.OV ---
Vital Signs 09/02/24 15:58 Height 5 ft 6 in Weight 200 lb 4 oz BMI 32.3 BP 120/70 Blood Pressure Location Lt brachial Position Sitting Respiration 14 Pulse 84 Pulse Source Pulse Oximeter Temp 98.1 F Temp Source Oral Pulse Oximetry (%) 95 Oxygen Delivery Method Room Air Intake Visit Reasons: f/u elevated LDL, labs Intake Note: lab review Allergies No Known Allergies Allergy (Verified 09/02/24 15:57) Medication List - Last Reconciled 09/02/24 by Lars Luis MD No Known Home Meds Tobacco use date assessed: 10/27/23 Dental Screening Dental Screen Date: 06/06/24 HPI f/u elevated LDL, labs HPI Details Patient?returns?to?follow-up?labs Mild?anemia?which?is?nearly?resolved. Retic?count?is?appropriately?elevated Iron?and?B12?are?within?normal?limit LDL?cholesterol?was?117?at?last?check Encouraged?diet?lower?in?saturated?fats?and?cholesterol.??Encouraged?weight?control?and?exercise PSA?was?within?normal?limits [facility] Medical History (Updated 06/06/24 @ 16:19 by Declan Buenrostro CNP) Fungal dermatitis Daily headache Asthma Surgical History No pertinent past surgical history Social History Housing: House Patient Tobacco Use Status: Never used Tobacco e-Cigarette/Vaping Use: Never Used Second Hand Smoke Exposure: Yes service: No Current occupational status: employed Current occupation: [employer] Current occupational exposures/hazards: Yes Cognitive needs: No Hearing needs: No Vision needs: No Questionnaire PHQ-9 Over the last 2 weeks, how often have you been bothered by any of the following problems? 1. Little interest or pleasure in doing things: not at all 2. Feeling down, depressed, or hopeless: not at all 3. Trouble falling or staying asleep, or sleeping too much: not at all 4. Feeling tired or having little energy: not at all 5. Poor appetite or overeating: not at all 6. Feeling bad about yourself - or that you are a failure or have let yourself or your family down: not at all 7. Trouble concentrating on things, such as reading the newspaper or watching television: not at all 8. Moving or speaking so slowly that other people could have noticed. Or the opposite - being so fidgety or restless that you have been moving around a lot more than usual: not at all 9. Thoughts that you would be better off or of hurting yourself in some way: not at all Total score: 0 Source: Developed by Drs. Edvin Spring, Susan Will, Rai Jean and colleagues, with an educational fawn from [employer]. Thrive Questionnaire Date Thrive assessed: 06/06/24 I am a: Patient What is your living situation today?: I have a steady place to live Within the past 12 months, did the food you bought not last and you didn't have the money to get more?: Never true Within the past 12 months, did you worry whether your food would run out before you got money to buy more?: Never true Do you have trouble paying for medicines?: No Do you have trouble getting transportation to medical appointments?: No Do you have trouble paying your heating and electricity bill?: No Do you have trouble taking care of your child, family member or friend?: No Do you have trouble with day-to-day activities such as bathing, preparing meals, shopping, managing finances, etc.?: No Are you currently unemployed and looking for a job?: No Are you interested in more education?: No Please select the resources that you would like help with: None Currently or been in a relationship where the following occur: No concerns reported THRIVE Score: 0 AUDIT C Alcohol Use Questionnaire (AUDIT-C) 1. How often do you have a drink containing alcohol?: 2-4 times a month 2. How many drinks containing alcohol do you have on a typical day when you are drinking?: 1 or 2 3. How often do you have six or more drinks on one occasion?: Never Total Score: 2 MARTINA-7 AMB Questionnaire MARTINA-7 Date MARTINA - 7 assessed: 06/06/24 Feeling nervous, anxious, or on edge: 0 = Not at all Not being able to stop or control worryin = Not at all Worrying too much about different things: 0 = Not at all Trouble relaxin = Not at all Being so restless that it is hard to sit still: 0 = Not at all Becoming easily annoyed or irritable: 0 = Not at all Feeling afraid as if something awful might happen: 0 = Not at all Total MARTINA-7 score (0-4 normal; 5-9 mild; 10-14 moderate; 15-21 severe): 0 Source: Developed by Drs. Edvin Spring, Susan Will, Rai Jean and colleagues, with an educational fawn from [employer]. Review of Systems Const Denies chills, Denies fatigue, Denies fever(s), Denies headache(s) and Denies weakness ENT Denies dizziness and Denies headache(s) Card Denies chest pain, Denies lightheadedness, Denies dyspnea and Denies other (Palpitations) Resp Denies cough, Denies dyspnea, Denies wheezing and Denies other ( shortness of breath) Musc Denies numbness and Denies tingling Neuro Denies dizziness, Denies headache(s), Denies numbness, Denies tingling, Denies paresthesias and Denies weakness Psych Denies anxiety and Denies depression Endo Denies fatigue Aller/Immun Denies wheezing Physical exam (Primary Care) Vital Signs: Last Vital Signs Temp 98.1 F 09/02/24 15:58 Pulse 84 09/02/24 15:58 Resp 14 09/02/24 15:58 BP 120/70 09/02/24 15:58 Pulse Ox 95 09/02/24 15:58 Oxygen Delivery Method Room Air 09/02/24 15:58 BMI result Body Mass Index 32.3 Tobacco/Smoking Status: Tobacco use Status Tobacco use date assessed 10/27/23 09/02/24 16:00 Patient Tobacco Use Status Never used Tobacco 09/02/24 16:00 e-Cigarette/Vaping Use Never Used 09/02/24 16:00 PHQ-9: PHQ-9 Score PHQ-9: Total score 0 09/02/24 16:00 Thrive Assessment: Date of Thrive Assessment Date Thrive assessed 06/06/24 09/02/24 16:00 Currently or been in a relationship where the following occur: No concerns reported Const General: no acute distress and well developed Nutritional Appearance: well nourished Orientation/consciousness: patient oriented x3 HENMT Head: Yes normocephalic and Yes atraumatic Eyes General: appearance normal, both eyes and all related structures Pupils: Equal, round and reactive pupils present EOM: EOMs intact bilaterally Resp Effort & Inspection: normal respiratory effort Auscultation: clear to auscultation bilaterally Cardio Rate: regular rate Rhythm: regular rhythm Heart sounds: S1 normal heart sound present, S2 normal heart sound present, no gallops, no murmurs and no rubs Neuro General: patient oriented x3 and gait normal Cranial nerves: Yes Equal, round and reactive pupils present Psych Affect: normal affect Coding Level of Care Code Est Pt Level 3 (45970) Diagnoses Elevated LDL cholesterol level E78.00 Mild anemia D64.9 Screening for prostate cancer Z12.5 Assessment & Plan Assessment & Plan (1) Elevated LDL cholesterol level: Code(s): E78.00 - Pure hypercholesterolemia, unspecified Category: Medical Plan: LDL?was?117?at?last?check. Work?at?diet?low?in?saturated?fats?and?cholesterol Work?at?weight?loss Will?check?again?prior?to?next?visit (2) Mild anemia: Code(s): D64.9 - Anemia, unspecified Category: Medical Plan: Nearly?resolved.??B12?and?iron?are?okay Retic?count?is?appropriate (3) Screening for prostate cancer: Code(s): Z12.5 - Encounter for screening for malignant neoplasm of prostate Category: Medical Plan: LDL?is?within?normal?limit We?will?continue?annual?screening Orders: Orders Basic Metabolic Panel Today D64.9 - Anemia, unspecified, Z00.00 - Encounter for general adult medical examination without abnormal findings Lipid Panel Today E78.00 - Pure hypercholesterolemia, unspecified, Z00.00 - Encounter for general adult medical examination without abnormal findings Complete Blood Count Auto Diff Today D64.9 - Anemia, unspecified, Z00.00 - Encounter for general adult medical examination without abnormal findings
[2024-09-02 15:58] VITALS: BP 120/70; PULSE 84; RESP 14; TEMP 36.7; O2SAT 95; BMI 32.3
== END 2024-09-02 16:25 | disposition home or self-care (01) ==
PROVIDERS: PCP Family Medicine; Visit Provider Family Medicine
DX: E78.00 Pure hypercholesterolemia, unspecified (principal); D64.9 Anemia, unspecified; Z12.5 Encounter for screening for malignant neoplasm of prostate

== ENCOUNTER → 2024-09-02 15:40 | Outpatient (BNVA) | payer BC, SELFPAY | PROVIDERS: PCP Family Medicine; Visit Provider Family Medicine ==

== ENCOUNTER 2024-12-02 12:20 | Outpatient (REF) | payer BC, SELFPAY ==
[2024-12-02 14:32] LABS: MANUAL DIFF FLAG NO
[2024-12-02 14:37] LABS: Basophils Percent Auto 0.7 % (0-2); Eosinophils Percent Auto 0.5 % (0-4); Hematocrit 37.7 % (42.0-52.0); Hemoglobin 12.9 g/dl (14.0-18.0); Imm Gran Abs Auto 0.01 X10*3/uL (0.00-0.03); Imm Gran Pct Auto 0.2 % (0.0-0.4); Lymphocytes Absolute Auto 1.8 X10*3/uL (1.2-4.9); Lymphocytes Percent Auto 44.7 % (20-40); Mean Corpuscular HGB Conc 34.2 g/dl (31.0-36.0); Mean Corpuscular Hemoglobin 29.6 pg (27.0-33.0); Mean Corpuscular Volume 86.5 fL (80.0-98.0); Mean Platelet Volume 9.4 fL (9.4-12.4); Monocytes Absolute Auto 0.3 X10*3/uL (0.1-1.2); Monocytes Percent Auto 6.7 % (2-11); Neutrophils Absolute Auto 1.9 x10*3/uL (2.0-8.3); Neutrophils Percent Auto 47.2 % (45-73); Platelet Count 265 X10*3/uL (160-400); Red Blood Count 4.36 X10*6/uL (4.60-5.80); Red Cell Distribution Width 12.8 % (11.0-16.0); White Blood Count 4.1 X10*3/uL (4.8-10.8)
[2024-12-02 14:44] LABS: Anion Gap 13 (12-20); Blood Urea Nitrogen 13 mg/dL (9-16); Calcium 9.6 mg/dL (8.4-10.2); Carbon Dioxide 27 mmol/L (22-29); Chloride 104 mmol/L (96-108); Cholesterol 191 mg/dL (<200); Estimated Glomerular Filt Rate > 60; Glucose Random 93 mg/dL (60-115); HDL Cholesterol 47 mg/dL (>40); LDL Cholesterol Calculated 122 mg/dL (<100); Potassium 3.8 mmol/L (3.3-5.1); Sodium 140 mmol/L (135-145); Triglycerides 111 mg/dL (<150)
== END 2024-12-02 12:21 | disposition home or self-care (01) ==
LOC: HO.WFDLDS 12:20
PROVIDERS: Visit Provider Family Medicine
DX: Z00.00 Encounter for general adult medical examination without abnormal findings (principal); E78.00 Pure hypercholesterolemia, unspecified; D64.9 Anemia, unspecified
CPT/HCPCS: 36415; 80048; 80061; 85025

== ENCOUNTER → 2024-12-02 16:23 | Outpatient (AMB) | payer BC, SELFPAY ==
--- NOTE | 2024-12-02 16:34 | A.OFFPC_ITS ---
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 Labs drawn 12/02/24. Reviewed labs with pt. Mild anemia. Triglycerides 111. TC 191. LDL 122. HDL 47. PFSH Medical History (Updated 06/06/24 @ 16:19 by Declan Buenrostro CNP) Fungal dermatitis Daily headache Asthma Surgical History No pertinent past surgical history Social History Housing: House Patient Tobacco Use Status: Never used Tobacco e-Cigarette/Vaping Use: Never Used Second Hand Smoke Exposure: Yes service: No Current occupational status: employed Current occupation: [employer] Current occupational exposures/hazards: Yes Cognitive needs: No Hearing needs: No Vision needs: No Questionnaire Thrive Questionnaire Date Thrive assessed: 08/26/24 I am a: Patient What is your living situation today?: I have a steady place to live Within the past 12 months, did the food you bought not last and you didn't have the money to get more?: Never true Within the past 12 months, did you worry whether your food would run out before you got money to buy more?: Never true Do you have trouble paying for medicines?: No Do you have trouble getting transportation to medical appointments?: No Do you have trouble paying your heating and electricity bill?: No Do you have trouble taking care of your child, family member or friend?: No Do you have trouble with day-to-day activities such as bathing, preparing meals, shopping, managing finances, etc.?: No Are you currently unemployed and looking for a job?: No Are you interested in more education?: No Please select the resources that you would like help with: None Currently or been in a relationship where the following occur: No concerns reported THRIVE Score: 0 MARTINA-7 AMB Questionnaire MARTINA-7 Date MARTINA - 7 assessed: 06/06/24 Source: Developed by Drs. Edvin Spring, Susan Will, Rai Jean and colleagues, with an educational fawn from [employer]. Review of Systems Const Denies chills, Denies fatigue, Denies fever(s), Denies headache(s) and Denies weakness ENT Denies dizziness and Denies headache(s) Card Denies dyspnea Resp Denies cough, Denies dyspnea, Denies wheezing and Denies other (shortness of breath) Musc Denies numbness and Denies tingling Neuro Denies dizziness, Denies headache(s), Denies numbness, Denies tingling and Denies weakness Psych Denies anxiety and Denies depression Endo Denies fatigue Aller/Immun Denies wheezing Physical exam (Primary Care) Vital Signs: Last Vital Signs Temp 98.3 F 12/02/24 16:38 Pulse 68 12/02/24 16:38 Resp 16 12/02/24 16:38 BP 124/78 12/02/24 16:38 Pulse Ox 97 12/02/24 16:38 Oxygen Delivery Method Room Air 12/02/24 16:38 BMI result Body Mass Index 30.2 Tobacco/Smoking Status: Tobacco use Status Tobacco use date assessed 10/27/23 12/02/24 16:35 Patient Tobacco Use Status Never used Tobacco 12/02/24 16:35 e-Cigarette/Vaping Use Never Used 12/02/24 16:35 Thrive Assessment: Date of Thrive Assessment Date Thrive assessed 08/26/24 12/02/24 16:35 Currently or been in a relationship where the following occur: No concerns reported Const General: well developed; No acute distress Nutritional Appearance: well nourished Orientation/consciousness: patient oriented x3 HENMT Head: Yes normocephalic and Yes atraumatic Eyes General: appearance normal, both eyes and all related structures Pupils: Equal, round and reactive pupils present EOM: EOMs intact bilaterally Resp Effort & Inspection: normal respiratory effort Auscultation: clear to auscultation bilaterally Cardio Rate: regular rate Rhythm: regular rhythm Heart sounds: S1 normal heart sound present, S2 normal heart sound present, no gallops, no murmurs and no rubs Neuro General: patient oriented x3 and gait normal Cranial nerves: Yes Equal, round and reactive pupils present Psych Affect: normal affect Coding Level of Care Code Est Pt Level 3 (34950) Diagnoses Mild anemia D64.9 Elevated LDL cholesterol level E78.00 Assessment & Plan Assessment & Plan (1) Mild anemia: Code(s): D64.9 - Anemia, unspecified Category: Medical Plan: Unclear?cause No?evidence?of?increased?destruction Retic?count?shows?appropriate?elevation ? ?Blood?loss? Patient?does?not?note?blood?in?stools?home. Will?refer?to?GI Recheck?labs?prior?to?next?visit (2) Elevated LDL cholesterol level: Code(s): E78.00 - Pure hypercholesterolemia, unspecified Category: Medical Plan: Encouraged?further?lifestyle?changes Recheck?lipids?prior?to?next?visit Orders: Orders Vitamin B12 and Folate Today D64.9 - Anemia, unspecified, E53.8 - Deficiency of other specified B group vitamins Lipid Panel Today E78.00 - Pure hypercholesterolemia, unspecified, Z00.00 - Encounter for general adult medical examination without abnormal findings Complete Blood Count Auto Diff Today D64.9 - Anemia, unspecified, Z00.00 - Encounter for general adult medical examination without abnormal findings IRON PROFILE Today D64.9 - Anemia, unspecified Ferritin Today D64.9 - Anemia, unspecified Reticulocyte Count Today D64.9 - Anemia, unspecified TSH reflex Free T4 Today D64.9 - Anemia, unspecified, Z00.00 - Encounter for general adult medical examination without abnormal findings Comprehensive [place]. Panel Fast Today E78.00 - Pure hypercholesterolemia, unspecified, Z00.00 - Encounter for general adult medical examination without abnormal findings Referrals Gastroenterology Referral D64.9 - Anemia, unspecified
[2024-12-02 16:38] VITALS: BP 124/78; PULSE 68; RESP 16; TEMP 36.8; O2SAT 97; BMI 30.2
== END ==
LOC: HO.HMCFM 16:24
PROVIDERS: PCP Family Medicine; Visit Provider Family Medicine
DX: D64.9 Anemia, unspecified (principal); E78.00 Pure hypercholesterolemia, unspecified

== ENCOUNTER 2025-05-15 11:15 | Outpatient (AMB) | payer BC, SELFPAY ==
[2025-05-15 11:31] VITALS: BP 138/82; PULSE 61; TEMP 36.8; O2SAT 98; BMI 30.7
--- NOTE | 2025-05-15 11:31 | AM.OFFWIN_ITS ---
Intake Vital Signs 05/15/25 11:31 Height 5 ft 6 in Weight 190 lb BMI 30.7 BP 138/82 Blood Pressure Location Lt brachial Position Sitting Pulse 61 Pulse Source Pulse Oximeter Temp 98.2 F Temp Source Oral Pulse Oximetry (%) 98 Oxygen Delivery Method Room Air Intake Visit Reasons: EP- sinus issue Intake Note: pt presents with foul odor to sinus cavity after untreated sinusitis for a month Patient Tobacco Use Status: Never used Tobacco Allergies No Known Allergies Allergy (Verified 05/15/25 11:40) Do you need a note to return to daycare/school/sports/work: Yes HPI HPI Comments History of Present Illness Details History of Present Illness - The patient is a 39-year-old male pres enting with a foul smell in the nose and concerns of a sinus infection. - Symptoms began approximately one month ago, with a persistent foul smell from the nose and no nasal discharge. - No nasal congestion, sinus pain, or pr essure is currently reported. - He denies ear pain, sore throat, or po stnasal drip. - The patient has been using a new nasal spray. - No antibiotics were previously prescri bed for the suspected sinus infection. - The patient has no medication allergie s and reports no current pain. - He denies fever or chills. Physical Exam General: Cooperative, healthy appearing, comfortable, no acute distress and well developed Head: Normal to inspection Ears: Hearing grossly normal bilaterally. No tragus or mastoid tenderness noted. Auditory canals clear bilaterally. TM's normal, not bulging. Effusion noted bilaterally. Nose: Normal external nose present. Moist mucosa. Turbinates normal bilaterally, not boggy. Face and sinus: No tenderness to palpation of the frontal or maxillary sinuses bilaterally. Neck: Normal visual inspection and Yes full ROM. No lymphadenopathy noted. Respiratory: Normal respiratory effort and able to speak in complete sentences. Clear to auscultation bilaterally. No w/r/r noted. Cardiovascular: Regular rate and rhythm. Normal S1 and S2. No m/r/g noted. Skin: No rashes or lesions noted [facility] Medical History (Updated 06/06/24 @ 16:19 by Declan Buenrostro CNP) Fungal dermatitis Daily headache Asthma Surgical History No pertinent past surgical history Social History Housing: House Patient Tobacco Use Status: Never used Tobacco e-Cigarette/Vaping Use: Never Used Second Hand Smoke Exposure: Yes service: No Current occupational status: employed Current occupation: [employer] Current occupational exposures/hazards: Yes Cognitive needs: No Hearing needs: No Vision needs: No Review of Systems Const All systems reviewed & are unremarkable except as noted in HPI and below Physical Exam Vital Signs: Last Vital Signs Temp 98.2 F 05/15/25 11:31 Pulse 61 05/15/25 11:31 BP 138/82 05/15/25 11:31 Pulse Ox 98 05/15/25 11:31 Oxygen Delivery Method Room Air 05/15/25 11:31 BMI result Body Mass Index 30.7 Assessment & Plan Assessment & Plan (1) Unusual smell in nose: Code(s): R43.1 - Parosmia Plan Most likely due to a sinus infection vs post nasal drip vs dental abscess vs nasal polyps plan - cetirizine D daily - Augmentin BID for 7 days - tylenol or motrin as needed for pain or fever - follow up PCP - may need a referral to ENT if no resolution of symptoms Medications: New amoxicillin-pot clavulanate 875-125 mg 1 tab PO Q12H 14 tabs 0RF cetirizine-pseudoephedrine 5-120 mg ER 1 tab PO BID 14 tabs 0RF 7 days Coding Level of Care Code Est Pt Level 3 (83513) Diagnoses Unusual smell in nose R43.1
== END 2025-05-15 12:16 | disposition home or self-care (01) ==
PROVIDERS: PCP Family Medicine; Visit Provider Physician Assistant Medical
DX: R43.1 Parosmia (principal)

== ENCOUNTER 2025-06-09 15:59 | Outpatient (AMB) | payer BC, SELFPAY ==
[2025-06-09 16:00] VITALS: BP 132/86; PULSE 87; TEMP 36.8; O2SAT 96; BMI 31.0
--- NOTE | 2025-06-09 16:00 | A.OFFPC_ITS ---
Vital Signs 06/09/25 16:00 Height 5 ft 6 in Weight 192 lb 2 oz BMI 31.0 BP 132/86 Blood Pressure Location Lt brachial Position Sitting Pulse 87 Pulse Source Pulse Oximeter Temp 98.3 F Temp Source Temporal Artery Scan Pulse Oximetry (%) 96 Oxygen Delivery Method Room Air Intake Visit Reasons: cpe Allergies No Known Allergies Allergy (Verified 06/09/25 16:03) Medication List - Last Reconciled 06/09/25 by Lars Luis MD No Known Home Meds Tobacco use date assessed: 06/09/25 Dental Screening Dental Screen Date: 06/09/25 Did you have a dental visit in the last 12 months?: Yes Did you have a dental problem in the last 6 months where you did not have access to dental care?: No Was dental information given to patient?: Patient has dentist HPI cpe HPI Details 39 y/o male presents for a CPE with f/u labs and health maint. No recent labs to review. Notes recurrent sinusitis. He reports augmentin has not helped. [facility] Medical History Fungal dermatitis Daily headache Asthma Surgical History No pertinent past surgical history Social History Housing: House Patient Tobacco Use Status: Never used Tobacco e-Cigarette/Vaping Use: Never Used Second Hand Smoke Exposure: Yes service: No Current occupational status: employed Current occupation: [employer] Current occupational exposures/hazards: Yes Cognitive needs: No Hearing needs: No Vision needs: No Questionnaire PHQ-9 Over the last 2 weeks, how often have you been bothered by any of the following problems? 1. Little interest or pleasure in doing things: not at all 2. Feeling down, depressed, or hopeless: not at all 3. Trouble falling or staying asleep, or sleeping too much: not at all 4. Feeling tired or having little energy: not at all 5. Poor appetite or overeating: not at all 6. Feeling bad about yourself - or that you are a failure or have let yourself or your family down: not at all 7. Trouble concentrating on things, such as reading the newspaper or watching television: not at all 8. Moving or speaking so slowly that other people could have noticed. Or the opposite - being so fidgety or restless that you have been moving around a lot more than usual: not at all 9. Thoughts that you would be better off or of hurting yourself in some way: not at all Total score: 0 Source: Developed by Drs. Edvin Spring, Susan Will, Rai Jean and colleagues, with an educational fawn from [employer]. Thrive Questionnaire Date Thrive assessed: 08/26/24 I am a: Patient What is your living situation today?: I have a steady place to live Within the past 12 months, did the food you bought not last and you didn't have the money to get more?: Never true Within the past 12 months, did you worry whether your food would run out before you got money to buy more?: Never true Do you have trouble paying for medicines?: No Do you have trouble getting transportation to medical appointments?: No Do you have trouble paying your heating and electricity bill?: No Do you have trouble taking care of your child, family member or friend?: No Do you have trouble with day-to-day activities such as bathing, preparing meals, shopping, managing finances, etc.?: No Are you currently unemployed and looking for a job?: No Are you interested in more education?: No Please select the resources that you would like help with: None Currently or been in a relationship where the following occur: No concerns reported THRIVE Score: 0 AUDIT C Alcohol Use Questionnaire (AUDIT-C) 1. How often do you have a drink containing alcohol?: 2-4 times a month 2. How many drinks containing alcohol do you have on a typical day when you are drinking?: 1 or 2 3. How often do you have six or more drinks on one occasion?: Never Total Score: 2 MARTINA-7 AMB Questionnaire MARTINA-7 Date MARTINA - 7 assessed: 09/02/24 Feeling nervous, anxious, or on edge: 0 = Not at all Not being able to stop or control worryin = Not at all Worrying too much about different things: 0 = Not at all Trouble relaxin = Not at all Being so restless that it is hard to sit still: 0 = Not at all Becoming easily annoyed or irritable: 0 = Not at all Feeling afraid as if something awful might happen: 0 = Not at all Total MARTINA-7 score (0-4 normal; 5-9 mild; 10-14 moderate; 15-21 severe): 0 Source: Developed by Drs. Edvin Spring, Susan Will, Rai Jean and colleagues, with an educational fawn from [employer]. Review of Systems Const Denies chills, Denies fatigue, Denies fever(s), Denies headache(s) and Denies weakness Eyes Denies change in vision ENT Denies dizziness, Denies headache(s), Denies hearing loss, Denies nasal congestion, Denies sinus pain, Denies sinus pressure and Denies sore throat Card Denies chest pain, Denies lightheadedness, Denies dyspnea and Denies other (palpitations) Resp Denies cough, Denies dyspnea and Denies wheezing GI Denies abdominal pain, Denies melena, Denies hematochezia, Denies change in bowel habits, Denies dyspepsia and Denies nausea Denies hematuria and Denies dysuria Musc Denies abnormal gait, Denies myalgias, Denies arthralgias, Denies numbness and Denies tingling Skin/Breast Denies rash, Denies unusual bruising and Denies wounds Neuro Denies abnormal gait, Denies dizziness, Denies headache(s), Denies memory loss, Denies numbness, Denies Sensory deficit (Neuro), Denies tingling and Denies weakness Psych Denies anxiety, Denies depression and Denies memory loss Endo Denies cold intolerance, Denies fatigue, Denies heat intolerance, Denies polydipsia and Denies polyuria Brendan/Lymph Denies easy bleeding and Denies easy bruising Aller/Immun Denies wheezing Physical exam (Primary Care) Vital Signs: Last Vital Signs Temp 98.3 F 06/09/25 16:00 Pulse 87 06/09/25 16:00 BP 132/86 06/09/25 16:00 Pulse Ox 96 06/09/25 16:00 Oxygen Delivery Method Room Air 06/09/25 16:00 BMI result Body Mass Index 31.0 Tobacco/Smoking Status: Tobacco use Status Tobacco use date assessed 06/09/25 06/09/25 16:06 Patient Tobacco Use Status Never used Tobacco 06/09/25 16:06 e-Cigarette/Vaping Use Never Used 06/09/25 16:06 PHQ-9: PHQ-9 Score PHQ-9: Total score 0 06/09/25 16:06 Thrive Assessment: Date of Thrive Assessment Date Thrive assessed 08/26/24 06/09/25 16:06 Currently or been in a relationship where the following occur: No concerns reported Const General: no acute distress, well developed, alert and awake Nutritional Appearance: well nourished Orientation/consciousness: patient oriented x3 HENMT Head: Yes normocephalic and Yes atraumatic Ears: hearing grossly normal bilaterally and TM's normal bilaterally General nose exam: Normal external nose present and Normal nares present Mouth: Normal oral and palatal mucosa present and moist mucous membranes Teeth and gingiva: dentition normal Throat: Yes posterior oropharynx normal Eyes General: appearance normal, both eyes and all related structures Pupils: Equal, round and reactive pupils present and Pupil accommodation reflex normal EOM: EOMs intact bilaterally Neck Neck: Yes normal visual inspection, Yes no lymphadenopathy and Yes trachea midline Thyroid: Thyroid normal Carotids: no bruits Lymphatic: no lymphadenopathy noted Chest Chest palpation & inspection: normal inspection of the chest Resp Effort & Inspection: normal respiratory effort Auscultation: clear to auscultation bilaterally Cardio Rate: regular rate Rhythm: regular rhythm Heart sounds: S1 normal heart sound present, S2 normal heart sound present, no gallops, no murmurs and no rubs Bruits: no abdominal aortic bruits and no carotid bruits GI Palpation (GI): No Abdominal aortic bruit present, Soft to palpation, nontender, No hepatosplenomegaly present and No Rebound tenderness present Auscultation: normal bowel sounds General: Yes no CVA tenderness Back/Spine/Pelvis Back: no CVA tenderness Cervical Spine: cervical ROM normal and No Cervical spine tenderness Thoracic/Lumbar Spine: thoraco-lumbar ROM normal, No pain with thoraco-lumbar ROM, No thoracic spinal tenderness and No lumbar spinal tenderness Skin Lesions: no lesions Rashes: no rashes Trauma: no lacerations or abrasions Wounds: no wounds Nails: normal Neuro General: patient oriented x3 Cranial nerves: Yes Equal, round and reactive pupils present Cognition (Neuro): normal cognition Gait exam (Neuro): Normal gait present Motor exam (neuro): 5/5 motor strength present throughout Sensory Exam: No Sensory deficit (Neuro) Deep tendon reflexes (DTR's): Right patellar reflex intensity grade: 2+ and Left patellar reflex intensity grade: 2+ Extrem General: Yes normal to inspection and No edema Psych Appearance: grossly normal Affect: normal affect Attitude: cooperative Thought process: Normal thought process present Coding Level of Care Code Est Pt Level 3 (94624) Est Pt Prev Care 40-64y(06305) Diagnoses Adult general medical exam Z00.00 Screening for prostate cancer Z12.5 Sinusitis J32.9 Assessment & Plan Assessment & Plan (1) Adult general medical exam: Code(s): Z00.00 - Encounter for general adult medical examination without abnormal findings Category: Medical Plan: 39-year-old male presents for complete physical exam Exam within normal limits except as described below Encouraged healthy diet with active lifestyle and plenty of exercise (2) Screening for prostate cancer: Code(s): Z12.5 - Encounter for screening for malignant neoplasm of prostate Category: Medical Plan: PSA was within range Will continue annual screening (3) Sinusitis: Code(s): J32.9 - Chronic sinusitis, unspecified Category: Medical Plan: Nasal congestion with in nares Has tried antibiotic without improvement Will refer to ENT Meantime encouraged nasal saline rinses Orders: Referrals Ear/Nose/Throat Referral J32.9 - Chronic sinusitis, unspecified, R68.89 - Other general symptoms and signs
== END 2025-06-09 16:24 | disposition home or self-care (01) ==
LOC: HO.HMCFM 15:59
PROVIDERS: PCP Family Medicine; Visit Provider Family Medicine
DX: Z00.00 Encounter for general adult medical examination without abnormal findings (principal); J32.9 Chronic sinusitis, unspecified